=== PATIENT | female | born 1940 | race Caucasian/White ===

== ENCOUNTER 2016-12-04 13:41 | Emergency (ER) | payer MEDICARE ==
[2015-06-12 13:56] VITALS: BMI 18.8
[~2016-12-04 13:41] MED LIST: ARICEPT5 MG PO; CELEXA20 MG PO; CIPRO500 MG PO; FLAGYL500 MG PO; HYDROCODONE-APA1 TAB PO; MIRALAX17 GM PO; PEPCID20 MG PO; ROBAXIN-750750 MG PO; ULTRAM50 MG PO; XANAX0.25 MG PO; XANAX0.5 MG PO; ZANAFLEX4 MG PO
== END 2016-12-04 15:38 | disposition home or self-care (01) ==
LOC: D.ER 13:41
DX: S90.121A Contusion of right lesser toe(s) without damage to nail, initial encounter (principal); W22.8XXA Striking against or struck by other objects, initial encounter; Y93.89 Activity, other specified; Y92.019 Unspecified place in single-family (private) house as the place of occurrence of the external cause; I10 Essential (primary) hypertension; K21.9 Gastro-esophageal reflux disease without esophagitis

== ENCOUNTER 2017-02-28 13:00 | Emergency (ER) | payer MEDICARE ==
[2015-06-12 13:56] VITALS: BMI 18.8
== END 2017-02-28 18:20 | disposition home or self-care (01) ==
LOC: D.ER 13:00
DX: L02.413 Cutaneous abscess of right upper limb (principal); L03.113 Cellulitis of right upper limb; K21.9 Gastro-esophageal reflux disease without esophagitis; I10 Essential (primary) hypertension

== ENCOUNTER 2017-03-30 12:38 | Emergency (ER) | payer MEDICARE ==
[2015-06-12 13:56] VITALS: BMI 18.8
== END 2017-03-30 16:45 | disposition left against medical advice (07) ==
LOC: D.ER 12:38
DX: R21 Rash and other nonspecific skin eruption (principal)

== ENCOUNTER 2018-04-23 10:12 | Emergency (ER) | payer MEDICARE ==
[~2018-04-23] VITALS: Ht 162.6 cm; Wt 55.5 kg
[2018-04-23 10:28] VITALS: Ht 162.6 cm; Wt 55.5 kg
[2018-04-23] MEDS ORDERED: TORADOL10 MG PO (12:28)
[2018-04-23 13:00] VITALS: BP 121/68
== END 2018-04-23 12:47 | disposition home or self-care (01) ==
LOC: D.ER 10:12
DX: S20.211A Contusion of right front wall of thorax, initial encounter (principal); W01.0XXA Fall on same level from slipping, tripping and stumbling without subsequent striking against object, initial encounter; Y93.89 Activity, other specified; Y92.012 Bathroom of single-family (private) house as the place of occurrence of the external cause

== ENCOUNTER 2018-06-25 13:17 | Emergency (ER) | payer MEDICARE ==
[~2018-06-25] VITALS: Ht 162.6 cm; Wt 55.5 kg
[~2018-06-25 13:17] MED LIST changes: +TORADOL10 MG PO
[2018-06-25 13:31] VITALS: BP 130/70; Ht 162.6 cm; Wt 55.5 kg
[2018-06-25] MEDS ORDERED: HYDROCODON-ACE1 EAC7 PO (14:48)
== END 2018-06-25 15:32 | disposition home or self-care (01) ==
LOC: D.ER 13:17
DX: S99.921A Unspecified injury of right foot, initial encounter (principal); V09.20XA Pedestrian injured in traffic accident involving unspecified motor vehicles, initial encounter; Y93.89 Activity, other specified; Y92.89 Other specified places as the place of occurrence of the external cause; K21.9 Gastro-esophageal reflux disease without esophagitis

== ENCOUNTER 2019-02-12 19:18 | Emergency (ER) | payer MEDICARE, MEDICAID ==
[~2019-02-12] VITALS: Ht 162.6 cm; Wt 58.2 kg
[~2019-02-12 19:18] MED LIST changes: +HYDROCODON-ACE1 EAC7 PO
[2019-02-12 19:24] VITALS: Ht 162.6 cm; Wt 58.2 kg
[2019-02-12] MEDS ORDERED: NAPROSYN500 MG PO (20:09)
[2019-02-12 20:28] VITALS: BP 153/93
== END 2019-02-12 20:28 | disposition home or self-care (01) ==
LOC: D.ER 19:18
DX: S93.402A Sprain of unspecified ligament of left ankle, initial encounter (principal); W01.0XXA Fall on same level from slipping, tripping and stumbling without subsequent striking against object, initial encounter; Y93.89 Activity, other specified; Y92.89 Other specified places as the place of occurrence of the external cause

== ENCOUNTER 2019-07-24 12:51 | Emergency (ER) | payer MEDICARE, MEDICAID ==
[~2019-07-24] VITALS: Ht 162.6 cm; Wt 58.2 kg
[~2019-07-24 12:51] MED LIST changes: +NAPROSYN500 MG PO
[2019-07-24 12:53] VITALS: Ht 162.6 cm; Wt 58.2 kg
[2019-07-24 14:22] VITALS: BP 108/60
== END 2019-07-24 14:24 | disposition home or self-care (01) ==
LOC: D.ER 12:51
DX: R10.9 Unspecified abdominal pain (principal); M54.9 Dorsalgia, unspecified; M25.552 Pain in left hip